=== PATIENT | female | born 1955 | race Caucasian/White ===

== ENCOUNTER 2016-08-15 13:37 | Day surgery (SDC) | payer MEDICARE, BC ==
[~2016-08-15 13:37] MED LIST: ANTIVERT12.5 MG PO; ASPIRIN81 M1 PO; ATENOLOL25 MG PO; CARBIDOPA-LEVO1 EA16 PO; COLACE100 M1 PO; ESTRACE1 M3 PO; FISH OIL 1,2001 EAC7 PO; FLONASE ALLERG9.9 ML; IBUPROFEN200 M3 PO; LEVAQUIN500 MG PO; MS CONTIN15 M1 PO; NORCO 5/325 TAB1 TAB PO; PERCOCET 5/3251 TAB PO; PREMARIN0.3 MG PO; PRILOSEC OTC20 M1 PO; RESTORIL15 M1 PO; TENORMIN25 M1 PO; TRANSPORT CHAI1 EACH MC; VITAMIN B-1000 MCG/ IJ; VITAMIN D PO; VITAMIN E400 UNI4 PO; WALKER MC; WELLBUTRIN XL150 M1 PO; ZINC PO; [UNRECOGNIZED DRUG - OTHER] PO
[2016-08-15 14:37] LABS: URINE APPEARANCE CLEAR; URINE BILIRUBIN NEGATIVE (NEG); URINE BLOOD SMALL (NEG); URINE COLOR YELLOW; URINE GLUCOSE (UA) NEGATIVE (NEG); URINE KETONE NEGATIVE (NEG); URINE LEUKOCYTE ESTERASE NEGATIVE (NEG); URINE NITRITE NEGATIVE (NEG); URINE PROTEIN NEGATIVE (NEG)
[2016-08-15 14:49] LABS: URINE BACTERIA 1+
[2016-08-15 15:08] LABS: INR 0.9 INR (0.9-1.1)
== END 2016-08-15 17:35 ==
LOC: SRG 13:37 → SHSB 13:38 → ORE 15:19 → PACU 15:59 → SHSB 16:29
PROVIDERS: Anesthesiology; Urology
PROC: 0TF4XZZ Fragmentation in Left Kidney Pelvis, External Approach (ICD-10-PCS; principal; 2016-08-15)
DX: N20.0 Calculus of kidney (principal); M19.90 Unspecified osteoarthritis, unspecified site; E05.00 Thyrotoxicosis with diffuse goiter without thyrotoxic crisis or storm; F32.9 Major depressive disorder, single episode, unspecified; H54.8 Legal blindness, as defined in USA; H91.90 Unspecified hearing loss, unspecified ear; K21.9 Gastro-esophageal reflux disease without esophagitis; K76.0 Fatty (change of) liver, not elsewhere classified; Z79.82 Long term (current) use of aspirin; Z79.899 Other long term (current) drug therapy; Z88.1 Allergy status to other antibiotic agents; Z88.2 Allergy status to sulfonamides; Z87.891 Personal history of nicotine dependence; Z90.710 Acquired absence of both cervix and uterus; Z98.49 Cataract extraction status, unspecified eye; Z98.890 Other specified postprocedural states
CPT/HCPCS: J1956